=== PATIENT | male | born 1980 | race African-American/Black ===

== ENCOUNTER 2017-02-07 10:42 | Emergency (ER) | payer MEDICARE ==
[2017-02-07 12:18] LABS: Basophils % (Auto) 0.5 % (0.0-1.8); Eosinophils % (Auto) 3.6 % (0.0-4.3); Hematocrit 33.4 % (35.5-45.6); Hemoglobin 11.1 gm/dl (11.8-15.2); Mean Corpuscular HGB Conc 33 % (32-34); Mean Corpuscular Hemoglobin 30 pg (28-32); Mean Corpuscular Volume 90 fl (84-94); Platelet Count 120 K/mm3 (140-440); Red Blood Count 3.73 M/mm3 (3.65-5.03); Red Cell Distribution Width 17.7 % (13.2-15.2); White Blood Count 3.6 K/mm3 (4.5-11.0)
[2017-02-07 12:30] LABS: Calcium 9.3 mg/dL (8.4-10.2); Potassium 4.2 mmol/L (3.6-5.0)
[2017-02-07] MEDS ORDERED: DILAUDID IV ONE ×2 (17:42→19:38)
[2017-02-07] MEDS ORDERED: REGLAN IV ONE (17:42)
--- NOTE | 2017-02-07 17:43 | Emergency Department Report ---
ED General Adult HPI - General Chief complaint: Nausea/Vomiting/Diarrhea Stated complaint: VOMITING/CONSTIPATED Time Seen by Provider: 02/07/17 17:32 Source: patient, RN notes reviewed, old records reviewed Mode of arrival: Wheelchair Limitations: No Limitations - History of Present Illness Initial comments: This is a 36-year-old male. He is previously unknown to me. His health coordinator is Dr. Garcia. Patient has a past medical history of end-stage renal disease on dialysis Sunday, , Sunday. His last dialysis session was this past Sunday. Patient also has a history of bilateral upper extremity grafts, left upper arm graft has failed, and he typically gets dialysis from his right upper extremity graft. The patient presents to the ER complaining of constipation. He reports diffuse abdominal aching, and reports that he's not had a bowel movement for about a week. He is passing gas. There is no testicular pain. Patient to believe does not make much urine. Patient complains of emesis, which is bilious, clear , and occasionally reddish. There is no bright red blood per rectum. The patient also complains of headache. Patient reports "chronic migraine headaches." The headache is global, throbbing. The headache did not reach maximal intensity within an hour. Headache is not sudden or thunderclap in nature. There is no neck pain. There is no neck stiffness. -: Gradual Location: head, abdomen Quality: aching Consistency: constant Improves with: movement, rest Worsens with: medication Associated Symptoms: nausea/vomiting, weakness - Related Data Home Medications Medication Instructions Recorded Confirmed Last Taken Clonidine HCl [Catapres] 0.3 mg PO TID 02/07/17 02/07/17 02/07/17 HYDROcodone/APAP 7.5-325 [[place] 1 each PO Q8HR PRN 02/07/17 02/07/17 02/06/17 7.5/325] Metoprolol [Lopressor TAB] 50 mg PO BID 02/07/17 02/07/17 02/07/17 amLODIPine [Norvasc] 10 mg PO BID 02/07/17 02/07/17 02/07/17 Previous Rx's Medication Instructions Recorded Last Taken Type hydrALAZINE [Apresoline TAB] 100 mg PO TID #90 tab 11/16/15 02/07/17 Rx Dicyclomine [Bentyl] 10 mg PO QID PRN #20 capsule 02/07/17 Unknown Rx Fluticasone [Flonase] 1 spray NS QDAY #1 bottle 02/07/17 Unknown Rx Mineral Oil [Fleet Mineral Oil] 133 ml VA QDAY PRN #5 bottle 02/07/17 Unknown Rx Ondansetron [Zofran Odt] 4 mg PO QID PRN #20 tab.rapdis 02/07/17 Unknown Rx Polyethylene Glycol 3350 [Miralax 17 gm PO QDAY #30 packet 02/07/17 Unknown Rx 3350] Allergies Allergy/AdvReac Type Severity Reaction Status Date / Time No Known Allergies Allergy Verified 02/24/15 10:44 ED Review of Systems ROS: Stated complaint: VOMITING/CONSTIPATED Other details as noted in HPI Constitutional: malaise. 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 back on hemodialysis) Hx Headaches / Migraines: Yes Hx COPD: No Additional medical history: SVT - Surgical History Past Surgical History?: Yes Hx Cholecystectomy: Yes Additional Surgical History: Status post cadaveric Renal transplant 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 SHUNT RIGHT ARM - Social History Smoking Status: Never Smoker Substance Use Type: Prescribed - Medications Home Medications: Home Medications Medication Instructions Recorded Confirmed Last Taken Type hydrALAZINE [Apresoline TAB] 100 mg PO TID #90 tab 11/16/15 02/07/17 02/07/17 Rx Clonidine HCl [Catapres] 0.3 mg PO TID 02/07/17 02/07/17 02/07/17 History Dicyclomine [Bentyl] 10 mg PO QID PRN #20 capsule 02/07/17 Unknown Rx Fluticasone [Flonase] 1 spray NS QDAY #1 bottle 02/07/17 Unknown Rx HYDROcodone/APAP 7.5-325 [[place] 1 each PO Q8HR PRN 02/07/17 02/07/17 02/06/17 History 7.5/325] Metoprolol [Lopressor TAB] 50 mg PO BID 02/07/17 02/07/17 02/07/17 History Mineral Oil [Fleet Mineral Oil] 133 ml VA QDAY PRN #5 bottle 02/07/17 Unknown Rx Ondansetron [Zofran Odt] 4 mg PO QID PRN #20 tab.rapdis 02/07/17 Unknown Rx Polyethylene Glycol 3350 [Miralax 17 gm PO QDAY #30 packet 02/07/17 Unknown Rx 3350] amLODIPine [Norvasc] 10 mg PO BID 02/07/17 02/07/17 02/07/17 History ED Physical Exam - General Limitations: No Limitations General appearance: alert, in no apparent distress - Head Head exam: Present: atraumatic, normocephalic - Eye Eye exam: Present: normal appearance, EOMI. Absent: nystagmus - ENT ENT exam: Present: normal exam, normal orophraynx, mucous membranes moist, normal external ear exam - Neck Neck exam: Present: normal inspection, full ROM. Absent: tenderness, meningismus - Respiratory Respiratory exam: Present: normal lung sounds bilaterally. Absent: respiratory distress, wheezes, rales, rhonchi, stridor, chest wall tenderness, accessory muscle use, decreased breath sounds, prolonged expiratory - Cardiovascular Cardiovascular Exam: Present: regular rate, normal rhythm, normal heart sounds. Absent: bradycardia, tachycardia, irregular rhythm, systolic murmur, diastolic murmur, rubs, gallop - GI/Abdominal GI/Abdominal exam: Present: soft, tenderness (there is mild diffuse abdominal tenderness, with no rebound, guarding or peritoneal signs), normal bowel sounds. Absent: distended, guarding, rebound, rigid - Rectal Rectal exam: Present: deferred - Extremities Exam Extremities exam: Present: normal inspection, full ROM, normal capillary refill , other (there is a right upper extremity AV fistula with an appropriate thrill. There is no redness, pus or streaking). Absent: tenderness, calf tenderness - Back Exam Back exam: Present: normal inspection, full ROM. Absent: tenderness, CVA tenderness (R), CVA tenderness (L), muscle spasm, paraspinal tenderness, vertebral tenderness - Neurological Exam Neurological exam: Present: alert, oriented X3, other (Extraocular movements intact. Tongue midline. No facial droop. Facial sensation intact to light touch in the V1, V2, V3 distribution bilaterally. 5 and 5 strength in 4 extremities.. Sensation is intact to light touch in 4 extremities.). Absent: motor sensory deficit - Psychiatric Psychiatric exam: Present: anxious - Skin Skin exam: Present: warm, dry, intact, normal color. Absent: rash ED Course Vital Signs 02/07/17 02/07/17 02/07/17 11:14 18:08 18:10 Temperature 98.3 F Pulse Rate 82 Respiratory 20 20 20 Rate Blood Pressure 154/110 Blood Pressure [Left] O2 Sat by Pulse 99 99 Oximetry 02/07/17 02/07/17 02/07/17 18:40 18:53 20:00 Temperature 98.8 F Pulse Rate 84 81 Respiratory 20 18 Rate Blood Pressure Blood Pressure 148/99 151/95 [Left] O2 Sat by Pulse 96 Oximetry - Reevaluation(s) Reevaluation #1: 02/07/17 18:46 Differential diagnosis: Ileus, obstruction, constipation, migraine headache, tension headache, cluster headache Assessment and plan: 36-year-old male with 2 complaints. Most likely migraine headache and constipation. He reports he is allergic to morphine, but can tolerate hydromorphone. She will be treated empirically with Reglan for nausea/ headache, and hydromorphone for abdominal pain and headache. He is able to tolerate oral contrast for a CT scan of the abdomen and pelvis. We will obtain noncontrast CT scan of the abdomen and pelvis with oral contrast to assess for the aforementioned conditions. We will also obtain a noncontrast CT scan of the brain to exclude gross structural abnormalities. Reevaluation #2: 02/07/17 19:39 The patient feels improved. He is able to tolerate liquid feeds. He reports she is getting dialysis in the morning. CT scan demonstrates pleural effusions, possible left lower lobe atelectasis versus infiltrate. Based on history, physical, examination, clinically doubt pneumonia. Mild anasarca noted in the abdominal region, on CAT scan, addition to possible mesenteritis. This may be a function of the patient's volume status and end stage renal disease status. His abdomen is nontender, with no rebound, guarding or peritoneal signs, there is no fever, there is no leukocytosis, and given clinical history of constipation, black bowel movements for one week, and CT scan findings, I'm inclined to favor pursue constipation as the leading diagnosis. The patient will be discharged with pain medication, nausea medication, fleets enema. Noncontrast CT scan demonstrates nonspecific sinusitis, there is mild right- sided sinus tenderness, with no CVA cough or nasal discharge. Patient will be discharged with Flonase, and acetaminophen. He denies irritative and obstructive urinary symptoms, therefore think UTI is unlikely. Given duration of symptoms, I do not believe the patient requires antibiotic therapy. He will be discharged with instructions to follow-up with his health coordinator in the morning. Return precautions are reviewed. ED Medical Decision Making - Lab Data Result diagrams: 02/07/17 11:30 02/07/17 11:30 Vital Signs 02/07/17 02/07/17 02/07/17 11:14 18:08 18:10 Temperature 98.3 F Pulse Rate 82 Respiratory 20 20 20 Rate Blood Pressure 154/110 O2 Sat by Pulse 99 99 Oximetry Lab Results 02/07/17 02/07/17 Range/Units 11:30 11:30 WBC 3.6 L (4.5-11.0) K/mm3 RBC 3.73 (3.65-5.03) M/mm3 Hgb 11.1 L (11.8-15.2) gm/dl Hct 33.4 L (35.5-45.6) % MCV 90 (84-94) fl MCH 30 (28-32) pg MCHC 33 (32-34) % RDW 17.7 H (13.2-15.2) % Plt Count 120 L (140-440) K/mm3 Lymph % (Auto) 23.1 (13.4-35.0) % [place] % (Auto) 8.7 H (0.0-7.3) % Eos % (Auto) 3.6 (0.0-4.3) % Baso % (Auto) 0.5 (0.0-1.8) % Lymph # 0.8 L (1.2-5.4) K/mm3 [place] # 0.3 (0.0-0.8) K/mm3 Eos # 0.1 (0.0-0.4) K/mm3 Baso # 0.0 (0.0-0.1) K/mm3 Seg Neutrophils % 64.1 (40.0-70.0) % Seg Neutrophils # 2.3 (1.8-7.7) K/mm3 Sodium 138 (137-145) mmol/L Potassium 4.2 (3.6-5.0) mmol/L Chloride 96.0 L (98-107) mmol/L Carbon Dioxide 26 (22-30) mmol/L Anion Gap 20 mmol/L BUN 23 H (9-20) mg/dL Creatinine 4.6 H (0.8-1.5) mg/dL Estimated GFR 15 ml/min BUN/Creatinine Ratio 5.00 % Glucose 98 (75-100) mg/dL Calcium 9.3 (8.4-10.2) mg/dL - Radiology Data Radiology results: report reviewed, image reviewed Noncontrast CT scan report is reviewed. CT scan of the abdomen and pelvis is reviewed. Critical care attestation.: If time is entered above; I have spent that time in minutes in the direct care of this critically ill patient, excluding procedure time. ED Disposition Clinical Impression: Head ache, Chronic renal insufficiency, Constipation Disposition: TO HOME OR SELFCARE Is pt being admited?: No Does the pt Need Aspirin: No Condition: Stable Additional Instructions: Take medications as directed. Follow up tomorrow morning with your health coordinator for dialysis. Drink 2-3 cups of water per day, mixed with prune juice. Constipation can typically take weeks to months to improve. [place] plenty of fruits, fibers, vegetables. Return to the ER right away with hip pain, worsened pain, migration of pain, fevers, chills, confusion, intractable nausea or vomiting, inability to tolerate liquid feeds. CT scan findings of the brain and cervical spine demonstrated numerous incidental findings, please have your primary care doctor or health coordinator contact medical records department to obtain CT scan results, to further follow up these incidental findings. Take acetaminophen, 650 mg [id number], every 4-6 hours as needed for pain. Take the Flonase as needed for nasal congestion, cough, sinus fullness. Prescriptions: Dicyclomine [Bentyl] 10 mg PO QID PRN #20 capsule PRN Reason: Pain Fluticasone [Flonase] 1 spray NS QDAY #1 bottle Mineral Oil [Fleet Mineral Oil] 133 ml VA QDAY PRN #5 bottle PRN Reason: Constipation Ondansetron [Zofran Odt] 4 mg PO QID PRN #20 tab.rapdis PRN Reason: Nausea Polyethylene Glycol 3350 [Miralax 3350] 17 gm PO QDAY #30 packet Referrals: JOHAN WEST MD [Primary Care Provider] - 3-5 Days ROMULO KNIGHT MD [Staff Physician] - 3-5 Days
--- NOTE | 2017-02-07 18:52 | Cat Scan Report ---
FINAL REPORT EXAM: CT HEAD/BRAIN WO CON HISTORY: headache TECHNIQUE: CT examination of the head without IV contrast PRIORS: 06/21/2015 FINDINGS: Complete opacification of visualized portion of right maxillary sinus. This sinus not included on comparison exam. The other paranasal sinuses are clear. Scattered opacity in right mastoid air cells, less prominent than comparison. New small fluid level in right mastoid air cells. Right middle ear cavity is not clear. New inferior opacification of the left mastoid air cells. Clear left middle ear cavity. Stable nonspecific sclerotic foci scattered throughout the calvarium bilaterally. This again involves frontal and parietal bone. These appear unchanged from head CT also dated 05/17/2015. Stable extensive calcification in the falx cerebri and tentorium cerebelli, unchanged. Bone windows demonstrate no acute fracture. The brain is without mass, mass effect, hemorrhage, or acute infarct. There is no extra-axial intracranial bleed, brain bleed, or midline shift. The ventricles and sulci are age-appropriate. IMPRESSION: Right maxillary sinus complete opacification of visualized portion New opacity in left mastoid air cells and persisting opacity in right mastoid air cells. Small fluid level in right mastoid air cells. Findings may reflect eustachian tube dysfunction and/or mastoiditis bilaterally Nonspecific scattered sclerotic foci are unchanged in the frontal and parietal bone calvarium. Although they may represent blastic metastatic foci, lack of change in nearly 2 years favors a benign process, possibly osteomas No acute CVA, mass, or hemorrhage
--- NOTE | 2017-02-07 18:58 | Cat Scan Report ---
FINAL REPORT EXAM: CT ABDOMEN PELVIS WO CON HISTORY: abd pain n/v TECHNIQUE: CT examination of the ABDOMEN without IV contrast CT examination of the PELVIS without IV contrast PRIORS: 06/26/2014 FINDINGS: Cardiomegaly with new diffuse pericardial thickening suggestive of effusion. New small bilateral pleural effusion with adjacent lower lobe posterior basilar atelectasis and/or infiltrate. Surgically absent gallbladder. Normal noncontrast appearance of the liver, adrenals, and pancreas. Enlarged spleen without focal lesion. Sagittal dimension is 15.3 cm, previously 13.9 cm. Normal caliber abdominal aorta and IVC. New scattered nonspecific fat stranding throughout the mesentery and abdominal wall may reflect anasarca. The differential includes mesenteritis Stable bilateral renal atrophy with parenchymal calcifications. No hydronephrosis. Again noted is a reniform focus in the right pelvis which may reflect a renal transplant. It contains 2 small 2 mm nonobstructing calculi. No hydronephrosis. Normal-appearing stomach and duodenum. No small bowel distention in the abdomen and pelvis. Nonspecific moderate pelvic free fluid. Nonspecific diffuse mural thickening in the urinary bladder. Normal-appearing prostate. Seminal vesicle calcification may be associated with renal status, possibly diabetes. Nonspecific mural thickening in the distal rectum. Normal-appearing sigmoid colon. Prominent stool and caliber from cecum to proximal descending colon is suggestive of constipation. No evidence of free air. Normal-appearing terminal ileum. No focal cecal abnormality. No pericecal inflammation. Surgical clips adjacent to the cecum may be from prior appendectomy. Appendix not separately identified. The IMPRESSION: Cardiomegaly with new pericardial thickening suggestive of effusion New small bilateral pleural effusions with adjacent lower lobe atelectasis and/or infiltrate Slightly larger splenomegaly New scattered fat stranding throughout the mesentery and abdominal wall may reflect anasarca. There is slight ascites free fluid in the pelvis. These changes may be secondary to bilateral renal atrophy and suggestion of right pelvic renal transplant. Differential for fat stranding in the mesentery is mild mesenteritis Nonobstructing calculi in transplant kidney Nonspecific mural thickening in the urinary bladder and distal rectum may be edema, inflammation, or infection Prominent stool and colon caliber suggestive of constipation from cecum to proximal descending colon
[2017-02-07] MEDS ORDERED: BENTYL IM ONE (19:38)
[2017-02-07 20:13] VITALS: BP 151/95
== END 2017-02-07 20:05 | disposition home or self-care (01) ==
LOC: ED 10:42
DX: I12.0 Hypertensive chronic kidney disease with stage 5 chronic kidney disease or end stage renal disease (principal); N18.6 End stage renal disease; R51 Headache; K59.00 Constipation, unspecified; G43.909 Migraine, unspecified, not intractable, without status migrainosus; Z99.2 Dependence on renal dialysis; Z88.5 Allergy status to narcotic agent; Z94.0 Kidney transplant status
CPT/HCPCS: 36415; 70450; 74176; 80048; 85025; 96372; 96374; 96375; 96376; 99284; J0500; J1170; J2765

== ENCOUNTER 2018-08-11 17:25 | Inpatient (IN) | payer MEDICAID, MEDICARE ==
[2018-08-11] MEDS ORDERED: ASPIRIN PO ONE (18:10)
[2018-08-11 18:29] LABS: Basophils # (Auto) 0.1 K/mm3 (0.0-0.1); Basophils % (Auto) 0.8 % (0.0-1.8); Eosinophils # (Auto) 0.1 K/mm3 (0.0-0.4); Eosinophils % (Auto) 1.2 % (0.0-4.3); Hematocrit 42.3 % (35.5-45.6); Hemoglobin 13.8 gm/dl (11.8-15.2); Lymphocytes # (Auto) 0.7 K/mm3 (1.2-5.4); Lymphocytes % (Auto) 8.3 % (13.4-35.0); Mean Corpuscular HGB Conc 33 % (32-34); Mean Corpuscular Volume 93 fl (84-94); Monocytes # (Auto) 0.3 K/mm3 (0.0-0.8); Monocytes % (Auto) 3.9 % (0.0-7.3); Platelet Count 184 K/mm3 (140-440); Red Blood Count 4.54 M/mm3 (3.65-5.03); Red Cell Distribution Width 16.9 % (13.2-15.2)
[2018-08-11] MEDS ORDERED: ZOFRAN IV ONE (18:34)
[2018-08-11] MEDS ORDERED: PEPCID IV ONE (18:34)
[2018-08-11] MEDS ORDERED: DILAUDID IV ONE (18:35)
[2018-08-11] MEDS ORDERED: NITROSTAT SL PRN ×2 (18:38→23:15)
--- NOTE | 2018-08-11 18:42 | Emergency Department Report ---
ED Chest Pain HPI - General Chief Complaint: Chest Pain Stated Complaint: CHEST PAIN Time Seen by Provider: 08/11/18 18:31 Source: patient, EMS Mode of arrival: Stretcher Limitations: No Limitations - History of Present Illness Initial Comments: Patient is a 37-year-old gentleman who is here secondary to chest pain. Patient has a past medical history of hypertension and end-stage renal disease. Patient states she's had sternal chest pain for roughly 1 month does worsened over the last 24 hours. Patient says a sharp constant pain there is some radiation to his back. Patient rates the pain a 10 out of 10 in severity. Patient has nausea vomiting. Patient denies cough, shortness of breath, fevers or chills. Patient's has a also a history of SVT and received a cardiac ablation several years ago. Patient's has a history of renal transplant that failed in 2009 and the patient is on dialysis currently. Severity scale (0 -10): 10 - Related Data Home Medications Medication Instructions Recorded Confirmed Last Taken Clonidine HCl [Catapres] 0.3 mg PO TID 02/07/17 02/07/17 02/07/17 HYDROcodone/APAP 7.5-325 [[place] 1 each PO Q8HR PRN 02/07/17 02/07/17 02/06/17 7.5/325] Metoprolol [Lopressor TAB] 50 mg PO BID 02/07/17 02/07/17 02/07/17 amLODIPine [Norvasc] 10 mg PO BID 02/07/17 02/07/17 02/07/17 Previous Rx's Medication Instructions Recorded Last Taken Type hydrALAZINE [Apresoline TAB] 100 mg PO TID #90 tab 11/16/15 02/07/17 Rx Dicyclomine [Bentyl] 10 mg PO QID PRN #20 capsule 02/07/17 Unknown Rx Fluticasone [Flonase] 1 spray NS QDAY #1 bottle 02/07/17 Unknown Rx Mineral Oil [Fleet Mineral Oil] 133 ml [place] QDAY PRN #5 bottle 02/07/17 Unknown Rx Ondansetron [Zofran Odt] 4 mg PO QID PRN #20 tab.rapdis 02/07/17 Unknown Rx Polyethylene Glycol 3350 [Miralax 17 gm PO QDAY #30 packet 02/07/17 Unknown Rx 3350] Allergies Allergy/AdvReac Type Severity Reaction Status Date / Time propofol [From Diprivan] Allergy Swelling Verified 08/11/18 18:11 aspirin AdvReac Unknown Verified 08/11/18 18:11 morphine AdvReac Headache Verified 08/11/18 18:11 Heart Score - HEART Score History: Moderately suspicious EKG: Non-specific Age: < 45 Risk factors: 1-2 risk factors Troponin: < normal limit HEART Score: 3 ED Review of Systems ROS: Stated complaint: CHEST PAIN Other details as noted in HPI Comment: All other systems reviewed and negative ED Past Medical Hx - Past Medical History Previous Medical History?: Yes Hx Hypertension: Yes Hx Renal Disease: Yes (had tranplant 2009-failed. back on hemodialysis Sun) Hx Headaches / Migraines: Yes Hx COPD: No Additional medical history: SVT. Patient had a cardiac cath done for with the following findings: There was no significant coronary disease present and the patient had a left ventricular systolic function of 55-60% ejection fraction. Patient's echocardiogram at that time showed mild concentric left ventricular hypertrophy and a dilated left and right atrium with mild mitral regurgitation. Aorticvalvesclerosispresentwithnosignificantaorticstenosis. - Surgical History Past Surgical History?: Yes Hx Cholecystectomy: Yes Additional Surgical History: Status post cadaveric Renal transplant [facility] 12/23/2009 , parathyroid surgery, bilateral knee surgery. SHUNT RIGHT ARM - Social History Smoking Status: Never Smoker Substance Use Type: None - Medications Home Medications: Home Medications Medication Instructions Recorded Confirmed Last Taken Type hydrALAZINE [Apresoline TAB] 100 mg PO TID #90 tab 11/16/15 02/07/17 02/07/17 Rx Clonidine HCl [Catapres] 0.3 mg PO TID 02/07/17 02/07/17 02/07/17 History Dicyclomine [Bentyl] 10 mg PO QID PRN #20 capsule 02/07/17 Unknown Rx Fluticasone [Flonase] 1 spray NS QDAY #1 bottle 02/07/17 Unknown Rx HYDROcodone/APAP 7.5-325 [[place] 1 each PO Q8HR PRN 02/07/17 02/07/17 02/06/17 History 7.5/325] Metoprolol [Lopressor TAB] 50 mg PO BID 02/07/17 02/07/17 02/07/17 History Mineral Oil [Fleet Mineral Oil] 133 ml [place] QDAY PRN #5 bottle 02/07/17 Unknown Rx Ondansetron [Zofran Odt] 4 mg PO QID PRN #20 tab.rapdis 02/07/17 Unknown Rx Polyethylene Glycol 3350 [Miralax 17 gm PO QDAY #30 packet 02/07/17 Unknown Rx 3350] amLODIPine [Norvasc] 10 mg PO BID 02/07/17 02/07/17 02/07/17 History ED Physical Exam - General Limitations: No Limitations General appearance: alert, anxious, in distress - Head Head exam: Present: atraumatic, normocephalic - Eye Eye exam: Present: normal appearance - ENT ENT exam: Present: mucous membranes moist - Neck Neck exam: Present: normal inspection - Respiratory Respiratory exam: Present: normal lung sounds bilaterally. Absent: respiratory distress, wheezes, rales, rhonchi, stridor - Cardiovascular Cardiovascular Exam: Present: regular rate, normal rhythm, normal heart sounds. Absent: systolic murmur, diastolic murmur, rubs, gallop - GI/Abdominal GI/Abdominal exam: Present: soft, normal bowel sounds. Absent: distended, tenderness, guarding, rebound, rigid - Rectal Rectal exam: Present: deferred - Extremities Exam Extremities exam: Present: normal inspection - Back Exam Back exam: Present: normal inspection - Neurological Exam Neurological exam: Present: alert, oriented X3 - Psychiatric Psychiatric exam: Present: normal affect, normal mood - Skin Skin exam: Present: warm, dry, intact, normal color. Absent: rash ED Course Vital Signs 08/11/18 08/11/18 08/11/18 18:04 18:06 18:16 Temperature 98.8 F Pulse Rate 90 94 H Respiratory 16 18 Rate Blood Pressure 165/103 165/103 O2 Sat by Pulse 99 100 100 Oximetry 08/11/18 08/11/18 08/11/18 18:30 18:46 19:00 Temperature Pulse Rate 89 96 H 89 Respiratory 17 18 17 Rate Blood Pressure 169/111 169/111 158/95 O2 Sat by Pulse 99 100 100 Oximetry 08/11/18 08/11/18 08/11/18 19:16 19:30 19:46 Temperature Pulse Rate 93 H 91 H 92 H Respiratory 16 16 14 Rate Blood Pressure 158/95 167/110 158/95 O2 Sat by Pulse 100 99 100 Oximetry - Reevaluation(s) Reevaluation #1: 08/11/18 19:57 The patient's d-dimer was elevated and the patient was complaining of some discomfort with breathing as well. Patient will have a VQ scan done at this time. KINSEY score - Kinsey Score Age > 65: (0) No Aspirin use within the Past 7 Days: (1) Yes 3 or more CAD Risk Factors: (1) Yes 2 or more Angina events in past 24 hrs: (1) Yes Known CAD with more than 50% Stenosis: (0) No Elevated Cardiac Markers: (0) No ST Deviation Greater than 0.5mm: (0) No KINSEY Score: 3 ED Medical Decision Making - Lab Data Result diagrams: 08/11/18 18:18 08/11/18 18:18 - EKG Data -: EKG Interpreted by Pa - EKG Data 08/11/18 18:42 EKG shows sinus rhythm a rate of 87. Normal axis normal intervals. Is evidence of left ventricular hypertrophy. There are no ST segment elevations or depressions. Time of interpretation is 1809 - Radiology Data Chest x-ray shows no acute problems with the patient's cardiopulmonary systems - Medical Decision Making Patient is a 37-year-old gentleman history of metastatic renal disease and an ablation for atrial fibrillation and SVT who is presenting with chest pain. Patient received nitroglycerin and Dilaudid for pain which helped briefly the patient's pain is to return. Patient has had 2 negative troponins as well as a VQ scan that was negative for PE. Patient will be admitted for continued chest pain Critical Care Time: Yes (30) Critical care attestation.: If time is entered above; I have spent that time in minutes in the direct care of this critically ill patient, excluding procedure time. ED Disposition Clinical Impression: End stage chronic kidney disease Chest pain Qualifiers: Chest pain type: unspecified Qualified Code(s): R07.9 - Chest pain, unspecified Hypertension Qualifiers: Hypertension type: unspecified Qualified Code(s): I10 - Essential (primary) hypertension Disposition: OP ADMIT IP TO THIS HOSP Is pt being admited?: Yes Does the pt Need Aspirin: No Condition: Stable Instructions: Chest Pain (ED), Hypertension (ED) Referrals: PRIMARY CARE, [Primary Care Provider] - 3-5 Days Time of Disposition: 22:29
[2018-08-11 18:49] LABS: Calcium 10.2 mg/dL (8.4-10.2)
[2018-08-11] MEDS ORDERED: DILAUDID ONE (18:52)
[2018-08-11 19:10] LABS: Albumin 4.8 g/dL (3.9-5); Bilirubin,Direct 0.2 mg/dL (0-0.2)
--- NOTE | 2018-08-11 19:41 | XRay Report ---
FINAL REPORT EXAM: XR CHEST ROUTINE 2V HISTORY: chest pain TECHNIQUE: 2 views of the chest. PRIORS: 06/21/2015 FINDINGS: The cardiomediastinal silhouette appears normal. The lungs are clear. The bones and soft tissues are unremarkable. IMPRESSION: No evidence of acute cardiopulmonary disease
[2018-08-11] MEDS ORDERED: PERCOCET 5/325 PO ONE ×2 (22:03→22:08)
[2018-08-11] MEDS ORDERED: APRESOLINE IV ONE (22:08)
--- NOTE | 2018-08-11 22:09 | Nuclear Medicine Report ---
FINAL REPORT EXAM: NM LUNG SCAN PERF/VENT HISTORY: Pleuritic chest pain with elevated D-dimer TECHNIQUE: The nuclear medicine ventilation perfusion study was performed. The patient was given 15 mCi of Xe 133 gas for the ventilation study and 5.05 mCi of technetium 99m MAA for the perfusion stud y. Images were acquired in the standard projections. Correlation is made with chest radiograph perfo rmed on the same date. PRIORS: None. FINDINGS: There is normal distribution of the radiopharmaceutical from both the ventilation and perfusion studi es. There are no defects. IMPRESSION: Normal VQ scan. No evidence of PE.
[2018-08-11] MEDS ORDERED: TYLENOL PO PRN (23:11)
[2018-08-11] MEDS ORDERED: DILAUDID IM PRN (23:16)
[2018-08-11] MEDS ORDERED: APRESOLINE IV PRN (23:19)
[2018-08-11] MEDS ORDERED: CATAPRES PO ONE (23:21)
[2018-08-11] MEDS ORDERED: NORMODYNE IV ONE ×2 (23:29→23:45)
[2018-08-11] MEDS: NITRO-BID 2% TP SCH (23:31)
[2018-08-11] MEDS ORDERED: CATAPRES ONE (23:45)
[2018-08-12 01:33] LABS: Creatine Kinase MB 1.4 ng/mL (0.0-4.0)
[2018-08-12] MEDS: NITRO-BID 2% TP SCH ×4 (05:43→18:35)
[2018-08-12] MEDS ORDERED: DILAUDID ONE (06:08)
[2018-08-12] MEDS: DILAUDID IV PRN ×3 (06:13→20:52)
[2018-08-12 06:45] LABS: Creatine Kinase MB 1.3 ng/mL (0.0-4.0)
--- NOTE | 2018-08-12 07:48 | History and Physical Report ---
CHIEF COMPLAINT: Chest pain. HISTORY OF PRESENT ILLNESS: The patient is a 37-year-old male who has been having substernal chest pain going on for about one month. The pain became worse in the last 24 hours and was rated at 10/10 and located in the retrosternal area radiating to the back. There is history of associated shortness of breath and nausea and vomiting. There is no history of cough. No history of fever or chills. The patient was evaluated in the Emergency Room. PAST MEDICAL HISTORY: Pertinent for hypertension, renal failure, needing dialysis. Also, the patient has past medical history of migraine headache and supraventricular tachycardia. PAST SURGICAL HISTORY: Pertinent for renal transplant. Also, the patient has past history of parathyroid surgery, bilateral knee surgery, dialysis shunt placement in the right arm. FAMILY HISTORY: Family history is noncontributory. SOCIAL HISTORY: The patient does not smoke, does not drink alcohol, and does not use illicit drugs. MEDICATIONS: The patient is on hydralazine 100 mg by mouth 3 times daily, clonidine 0.3 mg by mouth 3 times daily, Bentyl 10 mg by mouth q.i.d., Flonase 1 spray nasally every day, [place] 7.5/325 mg 1 by mouth every 8 hours, Lopressor 50 mg by mouth twice daily, mineral oil 133 mL per rectum daily as needed for constipation, Zofran sublingual 4 mg t.i.d. as needed for nausea and vomiting, MiraLax 17 g by mouth daily for constipation, Norvasc 10 mg by mouth twice daily. ALLERGIES: THE PATIENT IS ALLERGIC TO ASPIRIN, MORPHINE, AND PROPOFOL. REVIEW OF SYSTEMS: CONSTITUTIONAL: There is no fever, no chills, no diaphoresis. HEENT: There is no headache or sore throat. CARDIOVASCULAR SYSTEM: Chest pain is present. No orthopnea. RESPIRATORY SYSTEM: Shortness of breath is present. There is no cough. GASTROINTESTINAL SYSTEM: There is nausea and vomiting. No abdominal pain. No diarrhea or constipation. NEUROLOGICAL SYSTEM: There is no numbness, no dizziness, no altered mental status. MUSCULOSKELETAL SYSTEM: There is no joint pain or swelling. DERMATOLOGICAL SYSTEM: There is no skin rash or itching. GENITOURINARY SYSTEM: There is no dysuria, hematuria, or flank pain. Rest of system review is normal. PHYSICAL EXAMINATION: GENERAL: At the time of the exam, the patient was found to be alert, oriented x 3 and in mild distress due to chest pain. VITAL SIGNS: At the initial time of presentation show temperature of 98.8 degrees Fahrenheit, pulse of 90, respirations 16, blood pressure 165/103, O2 sat of 99% on room air. HEENT: Showed pupils to be equal, round, reactive to light and accommodating. Extraocular muscles are intact. NECK: Neck is supple with no JVD or carotid bruit. CARDIOVASCULAR SYSTEM: Showed normal first and second heart sounds with no gallops or murmur. RESPIRATORY SYSTEM: Showed good air entry on both sides of the lungs with no abnormal breath sounds. GASTROINTESTINAL SYSTEM: Show abdomen to be full, soft, nontender with no organomegaly or rigidity. NEUROLOGICAL: Neuro exam shows no focal deficits. MUSCULOSKELETAL SYSTEM: Shows no joint swelling or tenderness. DERMATOLOGICAL SYSTEM: Shows no skin rash. GENITOURINARY SYSTEM: Showing no costovertebral angle tenderness. PERTINENT LABORATORY AND IMAGING STUDIES: The patient had chest x-ray done that shows no evidence of acute cardiopulmonary lesions. The patient had V/Q scan done and the V/Q scan shows no evidence of pulmonary embolism. Lab results, the patient's CBC showed normal white count, normal hemoglobin and normal hematocrit with elevated segmented neutrophil on CBC differential. The patient's coagulation studies show high D-dimer of 500.79 and that led to the ordering of V/Q scan. The patient's chemistry shows low CO2 of 18 with elevated BUN of 38 and elevated creatinine of 8.8 consistent with the patient's end-stage renal disease, on dialysis. Rest of the patient's chemistry was unremarkable and cardiac enzymes show normal troponin level. DIAGNOSES: 1. Chest pain. 2. End-stage renal disease, on dialysis. PLAN OF CARE: 1. The patient will be admitted to telemetry. 2. The patient will have cardiac enzymes involving troponin, total CK and CK-MB checked q. 6 hours x 2 more levels. 3. The patient will be on nitro paste half-inch to the anterior chest wall q.i.d. and will also be on sublingual nitroglycerin 0.4 mg q. 5 minutes for breakthrough chest pain. 4. The patient will be n.p.o. for Lexiscan stress test this morning. 5. The patient will have Nephrology consult with Dr. 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 6. The patient will be on p.r.n. medications like Tylenol 650 mg by mouth every 4 hours for fever and headache and will be on IV Zofran 4 mg every 8 hours for nausea and vomiting. 7. The patient will be on IV hydralazine 10 mg every 4 hours as needed for elevated blood pressure of 160/90 or more. 8. The patient will have one dose of labetalol 20 mg because of elevated blood pressure. 9. The patient will be on heparin 5000 units subcutaneous q. 12 hours for DVT prophylaxis and the patient will be on IV Dilaudid 0.5 mg every 4 hours as needed for pain. ADDENDUM: The patient will be on oxygen by nasal cannula at 2 liter per minute. JOB# [id number] OCN/DUY MTDD
--- NOTE | 2018-08-12 09:35 | Consultation ---
History of Present Illness - History of Present Illness Thank you for the consultation Source of information: Patient himself as well as old records Patient is known to me from dialysis facility History of presenting illness Patient is a pleasant 37-year-old the male who has been admitted here for evaluation of chest pain. Patient is currently dialysis dependent and does go to [facility] dialysis facility where he dialyzes 3 times a week. During this admission he has been noted to have uncontrolled hypertension and is currently undergoing workup for his chest pain. Patient does remember having a cardiac catheterization in the past. Events of this hospitalization were noted Past medical history significant for: End-stage renal disease Anemia in end-stage renal disease Secondary hyperparathyroidism GI bleed Peptic ulceration Failed kidney transplant Current allergies: Reviewed Home medication/present medication: Reviewed Social history: Reviewed from the current chart Family history: Reviewed from the current chart Review of system is positive for; chest pain All other review of systems were negative Physical examination Vitals: Reviewed from this admission Gen.: No acute distress HEENT: Normocephalic/atraumatic skull oral mucosa moist minimal pallor no icterus or uremic order Neck: Supple without any thyromegaly nodular mass or JVD Chest: Clear to auscultation anteriorly few faint basilar crackles otherwise unremarkable Heart: Regular rate and rhythm S1 and S2 heard no S3-S4 no pericardial rub Abdomen: Soft nontender no guarding rigidity rebound organomegaly no suprapubic masses, no CVA tenderness no renal bruit Back: No CVA tenderness Derm: No petechial rashes dry skin Extremity: Pulses palpable no peripheral cyanosis, 1+ edema dry skin Neurological: Alert awake follows commands Psychiatric: No agitation and aggression Labs and x-rays: Were reviewed from this admission Assessment and plan; End-stage renal disease currently on maintenance hemodialysis patient will need to continue with hemodialysis 3 times a week normally he does dialyze at [facility] dialysis facility, we will continue with dialysis Sunday Anemia in end-stage renal disease: To monitor and follow goal hemoglobin for dialysis patient usually between 10 and 12 History of difficult to control hypertension in the past but currently doing better at the facility monitor blood pressure ultrafiltration as tolerated we'll continue to monitor blood pressure, Secondary hyperparathyroidism and bone mineral disorder will check phosphorus as well as PTH level History of failed kidney transplant currently on list again History of GI bleed, chronic headache, patient has had the multiple transfusion in the past remotely when he has had severe GI bleed Chest pain? Atypical? GI issues patient will need to complete workup and possibly also see gastroenterology services in outpatient setting adequately counseled and educated regarding all the renal related issues Supraventricular tachycardia had a cardiac catheterization in the past with EF of 55-60% mild concentric LVH , Had a detailed discussion with patient about the plan of care from renal standpoint. All questions were answered labs and pertinent imaging findings were explained to the patient and simple [place]. Advised patient to make an appointment for follow-up within a week of the discharge, for proper renal care We'll continue to follow and make recommendation from renal standpoint Thank you for the consultation. Medications and Allergies Allergies Allergy/AdvReac Type Severity Reaction Status Date / Time propofol [From Diprivan] Allergy Swelling Verified 08/11/18 18:11 aspirin AdvReac Unknown Verified 08/11/18 18:11 morphine AdvReac Headache Verified 08/11/18 18:11 Home Medications Medication Instructions Recorded Confirmed Last Taken Type hydrALAZINE [Apresoline TAB] 100 mg PO TID #90 tab 11/16/15 02/07/17 02/07/17 Rx Clonidine HCl [Catapres] 0.3 mg PO TID 02/07/17 02/07/17 02/07/17 History Dicyclomine [Bentyl] 10 mg PO QID PRN #20 capsule 02/07/17 Unknown Rx Fluticasone [Flonase] 1 spray NS QDAY #1 bottle 02/07/17 Unknown Rx HYDROcodone/APAP 7.5-325 [[place] 1 each PO Q8HR PRN 02/07/17 02/07/17 02/06/17 H istory 7.5/325] Metoprolol [Lopressor TAB] 50 mg PO BID 02/07/17 02/07/17 02/07/17 History Mineral Oil [Fleet Mineral Oil] 133 ml [place] QDAY PRN #5 bottle 02/07/17 Unknown Rx Ondansetron [Zofran Odt] 4 mg PO QID PRN #20 tab.rapdis 02/07/17 Unknown Rx Polyethylene Glycol 3350 [Miralax 17 gm PO QDAY #30 packet 02/07/17 Unknown Rx 3350] amLODIPine [Norvasc] 10 mg PO BID 02/07/17 02/07/17 02/07/17 History Active Meds: Active Medications Acetaminophen (Tylenol) 650 mg PO Q4H PRN PRN Reason: Headache Heparin Sodium (Porcine) (Heparin) 5,000 unit SUB-Q Q12HR [facility] Hydralazine HCl (Apresoline) 10 mg IV Q4H PRN PRN Reason: Blood Pressure Hydromorphone HCl (Dilaudid) 0.5 mg IV Q4H PRN PRN Reason: Pain , Severe (7-10) Last Admin: 08/12/18 06:13 Dose: 0.5 mg Documented by: Nitroglycerin (Nitrostat) 0.4 mg SL .Q5MIN PRN PRN Reason: Chest Pain Nitroglycerin (Nitro-Bid 2%) 0.5 inch TP QIDNTG [facility]; Protocol Last Admin: 08/12/18 05:43 Dose: Not Given Documented by: Ondansetron HCl (Zofran) 4 mg IV Q8H PRN PRN Reason: Nausea And Vomiting Exam - Vital Signs Vital signs: Vital Signs Pulse Ox 99 08/11/18 18:04 Results - Lab Results 08/11/18 18:18 08/11/18 18:18 Most recent lab results Calcium 10.2 mg/dL (8.4-10.2) 08/11/18 18:18
[2018-08-12] MEDS: HEPARIN SUB-Q SCH ×2 (10:24→22:27)
--- NOTE | 2018-08-12 11:02 | Progress Note ---
Assessment and Plan Assessment and plan: Chest pain. Patient will be continued on the chest pain pathway. Follow-up stress thallium. Check echocardiogram. ESRD. Continue hemodialysis per nephrology. Hypertension. Start labetalol 100 mg twice a day. History Interval history: Patient still complains of chest pain. Hospitalist Physical - Constitutional Vitals: Temp Pulse Resp BP Pulse Ox 98.8 F 78 12 120/79 98 08/11/18 18:06 08/12/18 06:16 08/12/18 06:16 08/12/18 06:16 08/12/18 06:16 General appearance: Present: no acute distress, well-nourished - EENT Eyes: Present: PERRL, EOM intact ENT: hearing intact, clear oral mucosa, dentition normal - Neck Neck: Present: supple, normal ROM - Respiratory Respiratory effort: normal Respiratory: bilateral: CTA - Cardiovascular Rhythm: regular Heart Sounds: Present: S1 & S2. Absent: gallop, rub - Extremities Extremities: no ischemia, No edema, Full ROM - Abdominal General gastrointestinal: soft, non-tender, non-distended, normal bowel sounds - Integumentary Integumentary: Present: clear, warm, dry - Neurologic Neurologic: CNII-XII intact, moves all extremities Results - Labs CBC & Chem 7: 08/11/18 18:18 08/11/18 18:18 Labs: Laboratory Last Values WBC 7.9 K/mm3 (4.5-11.0) 08/11/18 18:18 RBC 4.54 M/mm3 (3.65-5.03) 08/11/18 18:18 Hgb 13.8 gm/dl (11.8-15.2) 08/11/18 18:18 Hct 42.3 % (35.5-45.6) 08/11/18 18:18 MCV 93 fl (84-94) 08/11/18 18:18 MCH 31 pg (28-32) 08/11/18 18:18 MCHC 33 % (32-34) 08/11/18 18:18 RDW 16.9 % (13.2-15.2) H 08/11/18 18:18 Plt Count 184 K/mm3 (140-440) 08/11/18 18:18 Lymph % (Auto) 8.3 % (13.4-35.0) L 08/11/18 18:18 [place] % (Auto) 3.9 % (0.0-7.3) 08/11/18 18:18 Eos % (Auto) 1.2 % (0.0-4.3) 08/11/18 18:18 Baso % (Auto) 0.8 % (0.0-1.8) 08/11/18 18:18 Lymph # 0.7 K/mm3 (1.2-5.4) L 08/11/18 18:18 [place] # 0.3 K/mm3 (0.0-0.8) 08/11/18 18:18 Eos # 0.1 K/mm3 (0.0-0.4) 08/11/18 18:18 Baso # 0.1 K/mm3 (0.0-0.1) 08/11/18 18:18 Seg Neutrophils % 85.8 % (40.0-70.0) H 08/11/18 18:18 Seg Neutrophils # 6.8 K/mm3 (1.8-7.7) 08/11/18 18:18 D-Dimer 500.79 ng/mlDDU (0-234) H 08/11/18 18:40 Sodium 138 mmol/L (137-145) 08/11/18 18:18 Potassium 4.5 mmol/L (3.6-5.0) 08/11/18 18:18 Chloride 96.0 mmol/L (98-107) L 08/11/18 18:18 Carbon Dioxide 18 mmol/L (22-30) L 08/11/18 18:18 Anion Gap 29 mmol/L 08/11/18 18:18 BUN 38 mg/dL (9-20) H 08/11/18 18:18 Creatinine 8.8 mg/dL (0.8-1.5) H 08/11/18 18:18 Estimated GFR 7 ml/min 08/11/18 18:18 BUN/Creatinine Ratio 4 % 08/11/18 18:18 Glucose 91 mg/dL (75-100) 08/11/18 18:18 Calcium 10.2 mg/dL (8.4-10.2) 08/11/18 18:18 Total Bilirubin 0.70 mg/dL (0.1-1.2) 08/11/18 18:18 Direct Bilirubin 0.2 mg/dL (0-0.2) 08/11/18 18:18 Indirect Bilirubin 0.5 mg/dL 08/11/18 18:18 AST 40 units/L (5-40) 08/11/18 18:18 ALT 17 units/L (7-56) 08/11/18 18:18 Alkaline Phosphatase 169 units/L (35-129) H 08/11/18 18:18 Total Creatine Kinase 87 units/L (55-170) 08/12/18 05:53 CK-MB (CK-2) 1.3 ng/mL (0.0-4.0) 08/12/18 05:53 CK-MB (CK-2) Rel Index 1.4 (0-4) 08/12/18 05:53 Troponin T 0.023 ng/mL (0.00-0.029) 08/12/18 05:53 Total Protein 8.6 g/dL (6.3-8.2) H 08/11/18 18:18 Albumin 4.8 g/dL (3.9-5) 08/11/18 18:18 Albumin/Globulin Ratio 1.3 % 08/11/18 18:18 Lipase 33 units/L (13-60) 08/11/18 18:18
[2018-08-12] MEDS: ZOFRAN IV PRN ×2 (15:02→19:51)
[2018-08-12] MEDS: NORMODYNE PO SCH (22:27)
[2018-08-12] MEDS ORDERED: NORMODYNE IV ONE (23:34)
[2018-08-13] MEDS: DILAUDID IV PRN ×4 (00:46→23:53)
[2018-08-13] MEDS: APRESOLINE IV PRN ×3 (00:48→11:07)
[2018-08-13] MEDS: ZOFRAN IV PRN (00:48)
[2018-08-13] MEDS: RESTORIL PO PRN ×2 (00:49→23:52)
[2018-08-13] MEDS: NITRO-BID 2% TP SCH ×3 (08:29→16:11)
--- NOTE | 2018-08-13 09:30 | Progress Note ---
Subjective Interval history: Patient was seen today for follow-up on multiple renal related issues Events of this hospitalization noted Patient denies having any chest pain pressure or shortness of breath Vitals labs intake output medications were reviewed Social history: Reviewed Allergies: Reviewed Family history: Reviewed Physical examination HEENT: Oral mucosa moist no pallor or icterus Neck: Supple no JVD Chest: Clear to auscultation anteriorly CVS: Regular rate and rhythm S1 and S2 heard Abdomen: Soft nontender no suprapubic masses no organomegaly appreciable Extremity: Dry skin less than 1+ peripheral edema Musculoskeletal: No joint effusion noted in knees and ankle Neurological: Alert awake Dermatology: No petechial rashes Psychiatry: No evidence of any agitation and aggression noted Assessment and plan Patient was adequately counseled and educated regarding multiple renal related issues Pertinent lab findings were discussed with patient, patient does exhibit good understanding of renal issues We'll continue to follow and make recommendation from renal standpoint Objective - Vital Signs Vital signs: Vital Signs - 12hr 08/12/18 08/12/18 08/13/18 23:14 23:27 00:37 Temperature 98.0 F Pulse Rate 107 H 100 H Respiratory 18 Rate Blood Pressure 206/127 206/127 214/134 O2 Sat by Pulse 100 Oximetry 08/13/18 08/13/18 08/13/18 00:48 03:42 04:00 Temperature 98.0 F Pulse Rate 98 H 90 93 H Respiratory 18 Rate Blood Pressure 214/134 215/134 O2 Sat by Pulse 99 Oximetry 08/13/18 08/13/18 08/13/18 05:08 05:27 08:07 Temperature 98.5 F Pulse Rate 101 H Respiratory 16 Rate Blood Pressure 215/134 193/126 O2 Sat by Pulse 98 99 Oximetry 08/13/18 08/13/18 08:29 09:20 Temperature Pulse Rate 99 H Respiratory Rate Blood Pressure O2 Sat by Pulse 100 Oximetry - Lab 08/11/18 18:18 08/11/18 18:18 Most recent lab results Calcium 10.2 mg/dL (8.4-10.2) 08/11/18 18:18 Medications & Allergies - Medications Allergies/Adverse Reactions: Allergies propofol [From Diprivan] Allergy (Verified 08/11/18 18:11) Swelling aspirin Adverse Reaction (Verified 08/11/18 18:11) Unknown morphine Adverse Reaction (Verified 08/11/18 18:11) Headache Home Medications: Home Medications Medication Instructions Recorded Confirmed Last Taken Type hydrALAZINE [Apresoline TAB] 100 mg PO TID #90 tab 11/16/15 02/07/17 02/07/17 Rx Clonidine HCl [Catapres] 0.3 mg PO TID 02/07/17 02/07/17 02/07/17 History Dicyclomine [Bentyl] 10 mg PO QID PRN #20 capsule 02/07/17 Unknown Rx Fluticasone [Flonase] 1 spray NS QDAY #1 bottle 02/07/17 Unknown Rx HYDROcodone/APAP 7.5-325 [[place] 1 each PO Q8HR PRN 02/07/17 02/07/17 02/06/17 History 7.5/325] Metoprolol [Lopressor TAB] 50 mg PO BID 02/07/17 02/07/17 02/07/17 History Mineral Oil [Fleet Mineral Oil] 133 ml [place] QDAY PRN #5 bottle 02/07/17 Unknown Rx Ondansetron [Zofran Odt] 4 mg PO QID PRN #20 tab.rapdis 02/07/17 Unknown Rx Polyethylene Glycol 3350 [Miralax 17 gm PO QDAY #30 packet 02/07/17 Unknown Rx 3350] amLODIPine [Norvasc] 10 mg PO BID 02/07/17 02/07/17 02/07/17 History Active Medications: Generic Name Dose Route Start Last Admin Trade Name Freq PRN Reason Stop Dose Admin Acetaminophen 650 mg 08/11/18 23:11 Tylenol PO Q4H PRN Headache Heparin Sodium (Porcine) 5,000 unit 08/12/18 10:00 08/12/18 22:27 Heparin SUB-Q Not Given Q12HR IBAN Hydralazine HCl 20 mg 08/12/18 23:14 08/13/18 05:27 Apresoline IV 20 mg Q4H PRN Administration Hypertension Hydromorphone HCl 0.5 mg 08/12/18 06:00 08/13/18 08:31 Dilaudid IV 0.5 mg Q4H PRN Administration Pain , Severe (7-10) Labetalol HCl 100 mg 08/12/18 22:00 08/12/18 22:27 Normodyne PO Not Given BID IBAN Nitroglycerin 0.4 mg 08/11/18 18:38 Nitrostat SL .Q5MIN PRN Chest Pain Nitroglycerin 0.5 inch 08/11/18 23:30 08/13/18 08:29 Nitro-Bid 2% TP 0.5 inch QIDNTG IBAN Administration Protocol Ondansetron HCl 4 mg 08/11/18 23:12 08/13/18 00:48 Zofran IV 4 mg Q8H PRN Administration Nausea And Vomiting Temazepam 15 mg 08/12/18 23:14 08/13/18 00:49 Restoril PO 15 mg QHS PRN Administration Sleep
[2018-08-13] MEDS ORDERED: NACL 0.9% 100 ML IV PRN (10:00)
[2018-08-13] MEDS ORDERED: LEXISCAN IV ONE (10:16)
[2018-08-13] MEDS ORDERED: APRESOLINE ONE (11:04)
[2018-08-13] MEDS ORDERED: CATAPRES PO ONE (11:30)
[2018-08-13] MEDS ORDERED: NACL 0.9 (PRIMING MACHINE ONLY DIALYSIS) MC ONE (11:53)
[2018-08-13] MEDS: HEPARIN SUB-Q SCH ×3 (15:58→21:46)
[2018-08-13] MEDS: NORMODYNE PO SCH ×2 (16:11→23:52)
[2018-08-13 16:37] LABS: Hematocrit 36.8 % (35.5-45.6); Hemoglobin 12.4 gm/dl (11.8-15.2); Mean Corpuscular HGB Conc 34 % (32-34); Mean Corpuscular Volume 92 fl (84-94); Platelet Count 165 K/mm3 (140-440); Red Cell Distribution Width 16.5 % (13.2-15.2)
[2018-08-13 17:01] LABS: Calcium 9.5 mg/dL (8.4-10.2)
--- NOTE | 2018-08-13 18:30 | Consultation ---
History of Present Illness Consult date: 08/13/18 Consult reason: chest pain History of present illness: The patient said 37-year-old man with end-stage renal disease on hemodialysis. He has a history of chronic severe hypertension. He has paroxysmal supraventricular tachycardia, underwent successful SVT ablation in 2014. He has chronic epigastric pain, has undergone serial noninvasive cardiac ischemic workup including a thallium stress test at [place] just 6 months ago, that was negative. His chronic atypical epigastric pain has been attributed to his chronic gastroesophageal reflux disease. On a recent outpatient follow-up, we determined that he was noncompliant with his Protonix, and recommended a resumption of PPI therapy. He is admitted to the hospital at this time with his chronic atypical chest pain. ECG is normal sinus rhythm, left ventricular hypertrophy by voltage criteria, no acute ST or T-wave abnormality. He was ordered for a thallium stress test by the internal medicine service, which we canceled due to the patient's severe uncontrolled hypertension with blood pressure 215 systolic on arrival to the stress lab. Past History Past Medical History: GERD, hypertension, renal failure, other (PSVT status post successful ablation) Medications and Allergies Allergies Allergy/AdvReac Type Severity Reaction Status Date / Time propofol [From Diprivan] Allergy Swelling Verified 08/11/18 18:11 aspirin AdvReac Unknown Verified 08/11/18 18:11 morphine AdvReac Headache Verified 08/11/18 18:11 Home Medications Medication Instructions Recorded Confirmed Last Taken Type hydrALAZINE [Apresoline TAB] 100 mg PO TID #90 tab 11/16/15 02/07/17 02/07/17 Rx Clonidine HCl [Catapres] 0.3 mg PO TID 02/07/17 02/07/17 02/07/17 History Dicyclomine [Bentyl] 10 mg PO QID PRN #20 capsule 02/07/17 Unknown Rx Fluticasone [Flonase] 1 spray NS QDAY #1 bottle 02/07/17 Unknown Rx HYDROcodone/APAP 7.5-325 [[place] 1 each PO Q8HR PRN 02/07/17 02/07/17 02/06/17 History 7.5/325] Metoprolol [Lopressor TAB] 50 mg PO BID 02/07/17 02/07/17 02/07/17 History Mineral Oil [Fleet Mineral Oil] 133 ml [place] QDAY PRN #5 bottle 02/07/17 Unknown Rx Ondansetron [Zofran Odt] 4 mg PO QID PRN #20 tab.rapdis 02/07/17 Unknown Rx Polyethylene Glycol 3350 [Miralax 17 gm PO QDAY #30 packet 02/07/17 Unknown Rx 3350] amLODIPine [Norvasc] 10 mg PO BID 02/07/17 02/07/17 02/07/17 History Active Meds: Active Medications Acetaminophen (Tylenol) 650 mg PO Q4H PRN PRN Reason: Headache Heparin Sodium (Porcine) (Heparin) 5,000 unit SUB-Q Q12HR [facility] Last Admin: 08/13/18 15:58 Dose: Not Given Documented by: Hydralazine HCl (Apresoline) 20 mg IV Q4H PRN PRN Reason: Hypertension Last Admin: 08/13/18 11:07 Dose: 10 mg Documented by: Hydromorphone HCl (Dilaudid) 0.5 mg IV Q4H PRN PRN Reason: Pain , Severe (7-10) Last Admin: 08/13/18 16:12 Dose: 0.5 mg Documented by: Sodium Chloride (Nacl 0.9%) 100 mls @ 999 mls/hr IV NICOLÁS PRN PRN Reason: Hypotension Labetalol HCl (Normodyne) 100 mg PO BID [facility] Last Admin: 08/13/18 16:11 Dose: 100 mg Documented by: Nitroglycerin (Nitrostat) 0.4 mg SL .Q5MIN PRN PRN Reason: Chest Pain Nitroglycerin (Nitro-Bid 2%) 0.5 inch TP QIDNTG [facility]; Protocol Last Admin: 08/13/18 16:11 Dose: 0.5 inch Documented by: Ondansetron HCl (Zofran) 4 mg IV Q8H PRN PRN Reason: Nausea And Vomiting Last Admin: 08/13/18 00:48 Dose: 4 mg Documented by: Temazepam (Restoril) 15 mg PO QHS PRN PRN Reason: Sleep Last Admin: 08/13/18 00:49 Dose: 15 mg Documented by: Review of Systems Cardiovascular: chest pain, no orthopnea, no palpitations, no rapid/irregular heart beat, no edema, no syncope, no lightheadedness, no shortness of breath Physical Examination Vital Signs Pulse Ox 99 08/11/18 18:04 General appearance: no acute distress HEENT: Positive: PERRL Neck: Positive: neck supple Cardiac: Positive: Reg Rate and Rhythm Lungs: Positive: clear to auscultation Neuro: Positive: Grossly Intact Abdomen: Positive: Soft Male genitourinary: Positive: deferred Extremities: Absent: edema Results 08/13/18 16:12 08/13/18 16:12 CBC 08/13/18 Range/Units 16:12 WBC 4.6 (4.5-11.0) K/mm3 RBC 4.00 (3.65-5.03) M/mm3 Hgb 12.4 (11.8-15.2) gm/dl Hct 36.8 (35.5-45.6) % Plt Count 165 (140-440) K/mm3 Comprehensive Metabolic Panel 08/13/18 Range/Units 16:12 Sodium 139 (137-145) mmol/L Potassium 3.3 L D (3.6-5.0) mmol/L Chloride 94.6 L (98-107) mmol/L Carbon Dioxide 28 D (22-30) mmol/L BUN 21 H (9-20) mg/dL Creatinine 6.7 H (0.8-1.5) mg/dL Glucose 95 (75-100) mg/dL Calcium 9.5 (8.4-10.2) mg/dL EKG interpretations - Telemetry EKG Rhythm: Sinus Rhythm Assessment and Plan - Patient Problems (1) Chest pain Current Visit: Yes Status: Acute Qualifiers: Chest pain type: unspecified Qualified Code(s): R07.9 - Chest pain, unsp ecified Plan to address problem: Chest pain is atypical, has been previously attributed to his chronic gastroesophageal reflux disease. Would recommend further management with a PPI. A pharmacologic stress test with thallium was performed at [place] just 6 months ago and does not need to be repeated. (2) Hypertension Current Visit: Yes Status: Chronic Qualifiers: Hypertension type: unspecified Qualified Code(s): I10 - Essential (primary) hypertension Plan to address problem: This is a major cardiovascular risk for this patient at this time, with blood pressures consistently 180 to >200 systolic. We will recommend medical therapy for aggressive blood pressure control.
--- NOTE | 2018-08-13 18:37 | Progress Note ---
Assessment and Plan Assessment and plan: Chest pain. Stress test not done today, cancelled by cardiology ESRD. Continue hemodialysis per nephrology. Hypertensive urgency. Resume home meds History Interval history: Chest pain Elevated blood pressure Hospitalist Physical - Physical exam Narrative exam: GEN: Not in acute distress,lying in bed HEENT: Normocephalic, atraumatic, Neck: supple, No JVD Lungs: Clear to auscultation, no wheeze Heart:S1 and S2 regular, no murmurs, rubs or gallop, Abd:soft, non tender, non distended, normal bowel sounds Ext: No edema, no clubbing or cyanosis Neuro: Awake,alert, oriented x 3, No focal signs Psych:Normal mood - Constitutional Vitals: Temp Pulse Resp BP Pulse Ox 98.8 F 98 H 18 172/108 100 08/13/18 14:45 08/13/18 16:11 08/13/18 14:45 08/13/18 14:45 08/13/18 09:20 General appearance: Present: no acute distress Results - Labs CBC & Chem 7: 08/13/18 16:12 08/13/18 16:12 Labs: Laboratory Last Values WBC 4.6 K/mm3 (4.5-11.0) 08/13/18 16:12 RBC 4.00 M/mm3 (3.65-5.03) 08/13/18 16:12 Hgb 12.4 gm/dl (11.8-15.2) 08/13/18 16:12 Hct 36.8 % (35.5-45.6) 08/13/18 16:12 MCV 92 fl (84-94) 08/13/18 16:12 MCH 31 pg (28-32) 08/13/18 16:12 MCHC 34 % (32-34) 08/13/18 16:12 RDW 16.5 % (13.2-15.2) H 08/13/18 16:12 Plt Count 165 K/mm3 (140-440) 08/13/18 16:12 Lymph % (Auto) 8.3 % (13.4-35.0) L 08/11/18 18:18 [place] % (Auto) 3.9 % (0.0-7.3) 08/11/18 18:18 Eos % (Auto) 1.2 % (0.0-4.3) 08/11/18 18:18 Baso % (Auto) 0.8 % (0.0-1.8) 08/11/18 18:18 Lymph # 0.7 K/mm3 (1.2-5.4) L 08/11/18 18:18 [place] # 0.3 K/mm3 (0.0-0.8) 08/11/18 18:18 Eos # 0.1 K/mm3 (0.0-0.4) 08/11/18 18:18 Baso # 0.1 K/mm3 (0.0-0.1) 08/11/18 18:18 Seg Neutrophils % 85.8 % (40.0-70.0) H 08/11/18 18:18 Seg Neutrophils # 6.8 K/mm3 (1.8-7.7) 08/11/18 18:18 D-Dimer 500.79 ng/mlDDU (0-234) H 08/11/18 18:40 Sodium 139 mmol/L (137-145) 08/13/18 16:12 Potassium 3.3 mmol/L (3.6-5.0) L D 08/13/18 16:12 Chloride 94.6 mmol/L (98-107) L 08/13/18 16:12 Carbon Dioxide 28 mmol/L (22-30) D 08/13/18 16:12 Anion Gap 20 mmol/L 08/13/18 16:12 BUN 21 mg/dL (9-20) H 08/13/18 16:12 Creatinine 6.7 mg/dL (0.8-1.5) H 08/13/18 16:12 Estimated GFR 9 ml/min 08/13/18 16:12 BUN/Creatinine Ratio 3 % 08/13/18 16:12 Glucose 95 mg/dL (75-100) 08/13/18 16:12 Calcium 9.5 mg/dL (8.4-10.2) 08/13/18 16:12 Phosphorus 4.00 mg/dL (2.5-4.5) 08/13/18 16:12 Total Bilirubin 0.70 mg/dL (0.1-1.2) 08/11/18 18:18 Direct Bilirubin 0.2 mg/dL (0-0.2) 08/11/18 18:18 Indirect Bilirubin 0.5 mg/dL 08/11/18 18:18 AST 40 units/L (5-40) 08/11/18 18:18 ALT 17 units/L (7-56) 08/11/18 18:18 Alkaline Phosphatase 169 units/L (35-129) H 08/11/18 18:18 Total Creatine Kinase 87 units/L (55-170) 08/12/18 05:53 CK-MB (CK-2) 1.3 ng/mL (0.0-4.0) 08/12/18 05:53 CK-MB (CK-2) Rel Index 1.4 (0-4) 08/12/18 05:53 Troponin T 0.023 ng/mL (0.00-0.029) 08/12/18 05:53 Total Protein 8.6 g/dL (6.3-8.2) H 08/11/18 18:18 Albumin 4.8 g/dL (3.9-5) 08/11/18 18:18 Albumin/Globulin Ratio 1.3 % 08/11/18 18:18 Lipase 33 units/L (13-60) 08/11/18 18:18 Nutrition/Malnutrition Assess - Dietary Evaluation Nutrition/Malnutrition Findings: Nutrition Notes Start: 08/13/18 14:53 Freq: Status: Active Protocol: Document 08/13/18 14:53 RM (Rec: 08/13/18 14:53 RM [id number]) Nutrition Notes 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 Jose 21 points. Nutrition Intervention Revisit per MD consult or patient Sign Off request:
[2018-08-13] MEDS ORDERED: NORVASC PO SCH (19:00)
[2018-08-13] MEDS: CATAPRES PO SCH (21:45)
[2018-08-13] MEDS: APRESOLINE PO SCH (21:45)
[2018-08-13] MEDS: PROTONIX PO SCH (21:46)
[2018-08-13] MEDS: PROCARDIA XL PO SCH (23:52)
[2018-08-14 05:18] VITALS: BP 159/101
[2018-08-14] MEDS: NITRO-BID 2% TP SCH ×3 (06:10→09:59)
[2018-08-14] MEDS: DILAUDID IV PRN ×2 (06:11→10:45)
[2018-08-14] MEDS: APRESOLINE PO SCH (08:55)
[2018-08-14] MEDS: CATAPRES PO SCH (08:55)
--- NOTE | 2018-08-14 09:28 | Progress Note ---
Subjective Interval history: Patient was seen today for follow-up on multiple renal related issues Events of this hospitalization noted Has had hemodialysis treatment yesterday which she tolerated fairly well Patient has had complete cardiac workup Patient denies having any chest pain pressure or shortness of breath Vitals labs intake output medications were reviewed Social history: Reviewed Allergies: Reviewed Family history: Reviewed Physical examination HEENT: Oral mucosa moist no pallor or icterus Neck: Supple no JVD Chest: Clear to auscultation anteriorly CVS: Regular rate and rhythm S1 and S2 heard Abdomen: Soft nontender no suprapubic masses no organomegaly appreciable Extremity: Dry skin less than 1+ peripheral edema Musculoskeletal: No joint effusion noted in knees and ankle Neurological: Alert awake Dermatology: No petechial rashes Psychiatry: No evidence of any agitation and aggression noted Assessment and plan End-stage renal disease patient will continue with maintenance hemodialysis on Sunday Tolerated dialysis treatment fairly well yesterday Monitor dialysis related labs continue to dialyze 3 times per week Patient will need GI workup outpatient History of long-standing hypertension, paroxysmal supraventricular tachycardia status post ablation in 2014 Chronic epigastric pain, chronic GERD, peptic ulcer disease 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 From dialysis perspective his potassium was 3.3 yesterday, will need to do a follow-up hemoglobin was 12.4 D-dimer elevated: This could be nonspecific chest x-ray was unremarkable for any infiltrate VQ scan was unremarkable low suspicion for pulmonary embolism Patient is suitable for discharge from renal standpoint otherwise, Patient was adequately counseled and educated regarding multiple renal related i ssues Pertinent lab findings were discussed with patient, patient does exhibit good understanding of renal issues We'll continue to follow and make recommendation from renal standpoint Objective - Vital Signs Vital signs: Vital Signs - 12hr 08/13/18 08/13/18 08/13/18 21:45 22:00 23:51 Temperature 98.6 F Pulse Rate 95 H 87 Respiratory 18 Rate Blood Pressure 158/103 163/109 O2 Sat by Pulse 98 100 Oximetry 08/13/18 08/14/18 08/14/18 23:52 04:42 06:10 Temperature 98.3 F Pulse Rate 95 H 93 H Respiratory 18 Rate Blood Pressure 163/109 159/101 O2 Sat by Pulse 98 Oximetry 08/14/18 08:55 Temperature Pulse Rate 90 Respiratory Rate Blood Pressure O2 Sat by Pulse Oximetry - Lab 08/13/18:12 08/13/18 16:12 Most recent lab results Calcium 9.5 mg/dL (8.4-10.2) 08/13/18 16:12 Phosphorus 4.00 mg/dL (2.5-4.5) 08/13/18 16:12 Medications & Allergies - Medications Allergies/Adverse Reactions: Allergies propofol [From Diprivan] Allergy (Verified 08/11/18 18:11) Swelling aspirin Adverse Reaction (Verified 08/11/18 18:11) Unknown morphine Adverse Reaction (Verified 08/11/18 18:11) Headache Home Medications: Home Medications Medication Instructions Recorded Confirmed Last Taken Type hydrALAZINE [Apresoline TAB] 100 mg PO TID #90 tab 11/16/15 02/07/17 02/07/17 Rx Clonidine HCl [Catapres] 0.3 mg PO TID 02/07/17 02/07/17 02/07/17 History Dicyclomine [Bentyl] 10 mg PO QID PRN #20 capsule 02/07/17 Unknown Rx Fluticasone [Flonase] 1 spray NS QDAY #1 bottle 02/07/17 Unknown Rx HYDROcodone/APAP 7.5-325 [[place] 1 each PO Q8HR PRN 02/07/17 02/07/17 02/06/17 History 7.5/325] Metoprolol [Lopressor TAB] 50 mg PO BID 02/07/17 02/07/17 02/07/17 History Mineral Oil [Fleet Mineral Oil] 133 ml [place] QDAY PRN #5 bottle 02/07/17 Unknown Rx Ondansetron [Zofran Odt] 4 mg PO QID PRN #20 tab.rapdis 02/07/17 Unknown Rx Polyethylene Glycol 3350 [Miralax 17 gm PO QDAY #30 packet 02/07/17 Unknown Rx 3350] amLODIPine [Norvasc] 10 mg PO BID 02/07/17 02/07/17 02/07/17 History Active Medications: Generic Name Dose Route Start Last Admin Trade Name Freq PRN Reason Stop Dose Admin Acetaminophen 650 mg 08/11/18 23:11 Tylenol PO Q4H PRN Headache Clonidine HCl 0.3 mg 08/13/18 20:00 08/14/18 08:55 Catapres PO 0.3 mg TID IBAN Administration Heparin Sodium (Porcine) 5,000 unit 08/12/18 10:00 08/13/18 21:45 Heparin SUB-Q Not Given Q12HR [facility] Hydralazine HCl 20 mg 08/12/18 23:14 08/13/18 11:07 Apresoline IV 10 mg Q4H PRN Administration Hypertension Hydralazine HCl 100 mg 08/13/18 20:00 08/14/18 08:55 Apresoline PO 100 mg TID [facility] Administration Hydromorphone HCl 0.5 mg 08/12/18 06:00 08/14/18 06:11 Dilaudid IV 0.5 mg Q4H PRN Administration Pain , Severe (7-10) Sodium Chloride 100 mls @ 999 mls/hr 08/13/18 10:00 Nacl 0.9% IV NICOLÁS PRN Hypotension Labetalol HCl 200 mg 08/13/18 22:00 08/13/18 23:52 Normodyne PO 200 mg BID [facility] Administration Nifedipine 60 mg 08/13/18 22:00 08/13/18 23:52 Procardia Xl PO 60 mg Q12HR [facility] Administration Nitroglycerin 0.4 mg 08/11/18 18:38 Nitrostat SL .Q5MIN PRN Chest Pain Nitroglycerin 0.5 inch 08/11/18 23:30 08/14/18 08:20 Nitro-Bid 2% TP Not Given QIDNTG [facility] Protocol Ondansetron HCl 4 mg 08/11/18 23:12 08/13/18 00:48 Zofran IV 4 mg Q8H PRN Administration Nausea And Vomiting Pantoprazole Sodium 40 mg 08/13/18 19:00 08/13/18 21:46 Protonix PO 40 mg QDAY [facility] Administration Temazepam 15 mg 08/12/18 23:14 08/13/18 23:52 Restoril PO 15 mg QHS PRN Administration Sleep
[2018-08-14] MEDS: PROCARDIA XL PO SCH (09:59)
[2018-08-14] MEDS: HEPARIN SUB-Q SCH (10:00)
[2018-08-14] MEDS: PROTONIX PO SCH (10:00)
[2018-08-14] MEDS: NORMODYNE PO SCH (10:00)
--- NOTE | 2018-08-14 10:58 | Progress Note ---
Assessment and Plan Systemic Hypertension ESRD on HD History SVT s/p ablation 2015 Atypical chest pain due to GERD History of normal stress test at [place] 6 months ago CXR is normal VQ scan is normal Recommendations: No further cardiac work-up is needed Patient is currently asymptomatic and HD stable He already has a follow-up appointment with Dr Jiménez on the We will sign off Subjective Date of service: 08/14/18 Principal diagnosis: Chest Pain Interval history: Patient denies chest pain or shortness of breath this morning He states that he is ready to go home Objective Vital Signs Temp Pulse Resp BP Pulse Ox 08/14/18 08:55 90 08/14/18 06:10 93 H 08/14/18 04:42 98.3 F 95 H 18 159/101 98 08/13/18 23:52 163/109 08/13/18 23:51 98.6 F 87 18 163/109 100 08/13/18 22:00 98 08/13/18 21:45 95 H 158/103 08/13/18 19:31 99.3 F 95 H 18 158/103 98 08/13/18 17:25 98.8 F 88 16 151/99 99 08/13/18 16:11 98 H 08/13/18 14:45 98.8 F 80 18 172/108 08/13/18 14:30 91 H 189/123 08/13/18 14:15 85 171/116 08/13/18 14:00 85 189/115 08/13/18 13:45 80 185/123 08/13/18 13:30 85 155/112 08/13/18 13:15 81 167/106 08/13/18 13:00 84 142/92 08/13/18 12:45 87 138/91 08/13/18 12:30 91 H 131/84 08/13/18 12:15 90 144/88 08/13/18 12:00 86 180/110 08/13/18 11:45 88 201/123 08/13/18 11:30 93 H 191/113 08/13/18 11:18 98.2 F 91 H 18 192/118 08/13/18 11:07 227/143 - Physical Examination HEENT: Positive: PERRL Neck: Positive: neck supple Cardiac: Positive: Reg Rate and Rhythm Lungs: Positive: Normal Exam Neuro: Positive: Grossly Intact Abdomen: Positive: Soft Extremities: Absent: edema - Labs and Meds CBC 08/13/18 Range/Units 16:12 WBC 4.6 (4.5-11.0) K/mm3 RBC 4.00 (3.65-5.03) M/mm3 Hgb 12.4 (11.8-15.2) gm/dl Hct 36.8 (35.5-45.6) % Plt Count 165 (140-440) K/mm3 Comprehensive Metabolic Panel 08/13/18 Range/Units 16:12 Sodium 139 (137-145) mmol/L Potassium 3.3 L D (3.6-5.0) mmol/L Chloride 94.6 L (98-107) mmol/L Carbon Dioxide 28 D (22-30) mmol/L BUN 21 H (9-20) mg/dL Creatinine 6.7 H (0.8-1.5) mg/dL Glucose 95 (75-100) mg/dL Calcium 9.5 (8.4-10.2) mg/dL
--- NOTE | 2018-08-14 12:06 | Discharge Summary ---
Providers - Providers Date of Admission: 08/11/18 22:29 Date of discharge: 08/14/18 Attending physician: BLU FOX 08/12/18 05:41 Consult to Physician [CONS] Routine Comment: Consulting Provider: ROMULO KNIGHT Physician Instructions: Reason For Exam: ESRD Primary care physician: DIRECTOR OF RETAIL Hospitalization Condition: Fair Hospital course: Patient is 37 yo with hypertension, ESRD on dialysis. he presented with chest pain. He was admitted and Nephrology and Cardiology consulted. Cardiology determined he had normal stress test 6 months ago at [place] so stress test canceled. BP was elevated and anti-hypertensive dose increased. He was subsequently discharged home. Total time spent on discharge, 31 mins. Disposition: - TO HOME OR SELFCARE - Discharge Diagnoses (1) Chest pain Status: Acute (2) GERD (gastroesophageal reflux disease) Status: Acute (3) Hypertensive urgency Status: Acute (4) ESRD (end stage renal disease) Status: Chronic (5) ESRD on hemodialysis Status: Chronic (6) Non-compliance Status: Chronic Core Measure Documentation - Palliative Care Palliative Care/ Comfort Measures: Not Applicable - Core Measures Any of the following diagnoses?: none Exam - Constitutional Vitals: Temp Pulse Resp BP Pulse Ox 98.3 F 90 18 159/101 98 08/14/18 04:42 08/14/18 08:55 08/14/18 04:42 08/14/18 04:42 08/14/18 04:42 Plan Activity: advance as tolerated Diet: low fat, low cholesterol, low salt, renal Additional Instructions: 1.Follow up with PCP in 1 week. 2.Follow up with Dr. Jiménez as scheduled on 08/23/18. 3.Continue routine hemodialysis as scheduled Follow up with: PRIMARY CARE, [Primary Care Provider] - 3-5 Days Prescriptions: NIFEdipine XL [Procardia Xl] 60 mg PO Q12HR #60 tablet
== END 2018-08-14 14:20 | disposition home or self-care (01) | DRG 391 ==
LOC: ED 17:25 → 4A 22:29
PROVIDERS: ADMIT Internal Medicine; ATTEND Internal Medicine
PROC: 5A1D70Z Performance of Urinary Filtration, Intermittent, Less than 6 Hours Per Day (ICD-10-PCS; principal; 2018-08-13)
DX: K21.9 Gastro-esophageal reflux disease without esophagitis (principal); N18.6 End stage renal disease; I47.1 Supraventricular tachycardia; I16.0 Hypertensive urgency; I12.0 Hypertensive chronic kidney disease with stage 5 chronic kidney disease or end stage renal disease; N25.81 Secondary hyperparathyroidism of renal origin; D63.1 Anemia in chronic kidney disease; G43.909 Migraine, unspecified, not intractable, without status migrainosus; Z99.2 Dependence on renal dialysis; Z88.6 Allergy status to analgesic agent; Z79.899 Other long term (current) drug therapy; Z88.5 Allergy status to narcotic agent; Z94.0 Kidney transplant status
CPT/HCPCS: 36415; 71046; 78582; 80048; 80076; 82550; 82553; 83690; 84100; 84484; 85025; 85027; 85379; 93005; 93010; 96374; 96375; G0378; A9540; A9558; J0360; J1170; J1644; J2405; J2785; J7030